=== PATIENT | male | born 1990 | race Caucasian/White ===

== ENCOUNTER 2022-07-02 11:43 | Emergency (ER) | payer MEDICAID ==
[~2022-07-02] VITALS: Ht 193 cm; Wt 113.6 kg
[2022-07-02 11:46] VITALS: BP 137/83
[2022-07-02] MEDS ORDERED: ibuprofen tablet 400 MG TABLET PO ONE (15:10)
[2022-07-02] MEDS ORDERED: LIDOcaine 1% 30ml preserv. free vial SQ STA (15:15)
[2022-07-02] MEDS ORDERED: LIDOcaine 1%/PF 5ML 10 MG/ML VIAL SQ STA ×2 (15:19→15:21)
[2022-07-02] MEDS ORDERED: bacitracin 15gm ointment TP ONE (21:00)
== END 2022-07-02 18:12 | disposition home or self-care (01) ==
LOC: ER 11:44
DX: N49.2 Inflammatory disorders of scrotum (principal)
CPT/HCPCS: 54700; 76870; 93976; 99284; J7030; A6258; A6449

== ENCOUNTER 2024-05-11 11:24 | Emergency (ER) | payer MEDICAID ==
[~2024-05-11] VITALS: Ht 193 cm; Wt 136.2 kg
[2024-05-11 11:51] VITALS: BP 154/88; PULSE 82; RESP 18; TEMP 97.7; O2SAT 97
== END 2024-05-11 17:26 | disposition left against medical advice (07) ==
LOC: ER 11:25
DX: L02.212 Cutaneous abscess of back [any part, except buttock and flank] (principal); Z53.21 Procedure and treatment not carried out due to patient leaving prior to being seen by health care provider